=== PATIENT | male | born 1955 | race Caucasian/White ===

== ENCOUNTER 2021-11-11 11:12 | Emergency (ER) | payer MEDICAID ==
[~2021-11-11] VITALS: Ht 165.1 cm; Wt 72.6 kg
[2021-11-11 11:15] VITALS: BP_SYST 152
[2021-11-11] MEDS ORDERED: LIDOCAINE 1% 10 MG/ML, 20 ML MDV INJ ONE (12:00)
[2021-11-11] MEDS ORDERED: IBUP-1969 PO (12:08)
[2021-11-11] MEDS ORDERED: CEPH-548 PO (12:09)
[2021-11-11 12:16] VITALS: BP_SYST 133
== END 2021-11-11 12:19 | disposition home or self-care (01) ==
LOC: SED 11:12
DX: L03.011 Cellulitis of right finger (principal)
CPT/HCPCS: 10060; 99283; J2001